=== PATIENT | male | born 1990 | race Caucasian/White ===

== ENCOUNTER 2016-11-23 17:50 | Emergency (ER) | payer OTHER ==
[2016-11-23 17:45] LABS: URINE SOURCE CLEAN CATCH
[~2016-11-23 17:50] MED LIST: CIPRO PO; CORTISPORIN-TC10 ML AS; NO MEDICATIONS
[2016-11-23 17:52] LABS: URINE APPEARANCE CLEAR; URINE BILIRUBIN NEG (NEG); URINE BLOOD NEG (NEG); URINE COLOR YELLOW; URINE GLUCOSE NEG (NORM); URINE KETONE NEG (NEG); URINE LEUKOCYTE ESTERASE NEG (NEG); URINE NITRATE NEG (NEG); URINE PH 5.5 (5-8); URINE PROTEIN NEG (NEG); URINE UROBILINOGEN 0.2 MG/DL (NORM)
[2016-11-23 17:53] LABS: MICRO INDICATED? NO
[2016-11-27 17:40] LABS: CHLAMYDIA TRACH Not Detected (Not Detected); N GONOR Not Detected (Not Detected)
== END 2016-11-23 18:11 | disposition home or self-care (01) ==
LOC: SED 17:50
PROVIDERS: Emergency Medicine; Physician Assistant
DX: R30.0 Dysuria (principal); F17.210 Nicotine dependence, cigarettes, uncomplicated
CPT/HCPCS: 81003; 87491; 87591; 99282